=== PATIENT | female | born 1995 | race Caucasian/White ===

== ENCOUNTER 2016-08-18 22:23 | Emergency (ER) | payer OTHER ==
[~2016-08-18] VITALS: Ht 157.5 cm; Wt 54.4 kg
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
[2016-08-18] MEDS ORDERED: TETRACAINE 0.5% OPHTH SOLUTION 4ML BOTTLE. OD ONE (23:00)
[2016-08-18] MEDS ORDERED: FLUORESCEIN OPHTH TEST STRIP. OD ONE (23:00)
[2016-08-18] MEDS ORDERED: ERYT1OIN6 EACHEYE (23:29)
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
[2016-08-19 00:20] VITALS: BP 118/67
== END 2016-08-19 00:25 | disposition home or self-care (01) ==
LOC: ER 22:23
DX: S16.1XXA Strain of muscle, fascia and tendon at neck level, initial encounter (principal); S29.012A Strain of muscle and tendon of back wall of thorax, initial encounter; S05.01XA Injury of conjunctiva and corneal abrasion without foreign body, right eye, initial encounter; S09.90XA Unspecified injury of head, initial encounter; V49.88XA Car occupant (driver) (passenger) injured in other specified transport accidents, initial encounter; Y93.89 Activity, other specified; Y99.8 Other external cause status; Y92.488 Other paved roadways as the place of occurrence of the external cause
CPT/HCPCS: 70450; 72125; 72128; 81025; 84703; 99284-25

== ENCOUNTER 2017-06-23 16:06 | Emergency (ER) | payer OTHER ==
[2017-06-23 17:04] LABS: URINE HCG POC HCG NEGATIVE (Negative)
== END 2017-06-23 17:10 | disposition home or self-care (01) ==
LOC: ER 16:06
DX: M77.52 Other enthesopathy of left foot and ankle (principal)
CPT/HCPCS: 73630; 81025; 99284

== ENCOUNTER 2017-08-09 00:44 | Emergency (ER) | payer OTHER ==
[2017-08-09 01:23] LABS: URINE HCG POC HCG NEGATIVE (Negative)
[2017-08-09 01:48] LABS: ADD MAN DIFF? NO
[2017-08-09] MEDS: IV NORMAL SALINE 1000ML BAG 1,000 ML IV (01:50)
[2017-08-09] MEDS: KETOROLAC 30 MG/ML INJ. IV (01:50)
[2017-08-09] MEDS: ONDANSETRON ODT 4 MG TAB.RAPDIS. PO (01:50)
[2017-08-09 01:52] LABS: BASO % 1 % (0-3); BILIRUBIN,URINE SMALL (NEG); CLARITY,URINE CLEAR; COLOR,URINE AMBER; EOS # 0.1 x10^3/uL (0.0-0.7); EOS % 1 % (0-3); GLUCOSE,URINE NEGATIVE (NEG); HEMATOCRIT 41.4 % (36.0-47.0); HEMOGLOBIN 14.5 g/dL (12.0-15.5); LYMPH # 2.3 x10^3/uL (1.0-4.8); LYMPH % 33 % (24-48); MEAN CORPUSCULAR HEMOGLOBIN 32 pg (25-35); MEAN CORPUSCULAR HGB CONC 35 g/dL (31-37); MEAN CORPUSCULAR VOLUME 92 fL (79-100); MONO # 0.6 x10^3/uL (0.0-1.1); MONO % 8 % (0-9); NEUT # 4.1 x10^3uL (1.8-7.7); NEUT % 58 % (31-73); NITRITE,URINE NEGATIVE (NEG); PH,URINE 5.5; PLATELET COUNT 265 x10^3/uL (140-400); PROTEIN,URINE NEGATIVE (NEG-TRACE); RED BLOOD COUNT 4.51 x10^6/uL (3.50-5.40); RED CELL DISTRIBUTION WIDTH 12.2 % (11.5-14.5); WHITE BLOOD COUNT 7.2 x10^3/uL (4.0-11.0)
[2017-08-09 01:57] LABS: BACTERIA,URINE 0 /HPF (0-FEW); RBC,URINE 0 /HPF (0-2); SQUAMOUS EPITHELIAL CELL,UR FEW /LPF
[2017-08-09] MEDS ORDERED: CONTRAST GIVEN MC (02:00)
[2017-08-09 02:02] LABS: ANION GAP 8 (6-14); BLOOD UREA NITROGEN 20 mg/dL (7-20); BUN/CREATININE RATIO 20 (6-20); CALCIUM 9.6 mg/dL (8.5-10.1); CARBON DIOXIDE 27 mmol/L (21-32); CHLORIDE 104 mmol/L (98-107); GFR 68.1; GLUCOSE 92 mg/dL (70-99); POTASSIUM 3.2 mmol/L (3.5-5.1); SODIUM 139 mmol/L (136-145)
[2017-08-09 02:08] LABS: ALBUMIN 4.2 g/dL (3.4-5.0); ALBUMIN/GLOBULIN RATIO 1.2 (1.0-1.7); ALK PHOS 79 U/L (46-116); ALT (SGPT) 18 U/L (14-59); AST (SGOT) 12 U/L (15-37); LIPASE 157 U/L (73-393); TOTAL BILIRUBIN 0.8 mg/dL (0.2-1.0); TOTAL PROTEIN 7.7 g/dL (6.4-8.2)
[2017-08-09] MEDS: IOHEXOL 300 MG/ML 100ML VIAL. IV (02:15)
== END 2017-08-09 04:24 | disposition home or self-care (01) ==
LOC: ER 00:44
DX: R10.9 Unspecified abdominal pain (principal); E03.9 Hypothyroidism, unspecified
CPT/HCPCS: 36415; 74177; 80053; 81001; 81025; 83690; 85025; 87491; 87591; 96361; 96374; 99285-25; J1885; J7030; Q0162; Q9967

== ENCOUNTER 2018-01-14 19:23 | Emergency (ER) | payer OTHER ==
[~2018-01-14] VITALS: Ht 157.5 cm; Wt 54.4 kg
[~2018-01-14 19:23] MED LIST: ERYT1OIN6 EACHEYE; METH4TAB2 PO; NAPR-514 PO
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
--- NOTE | 2018-01-14 21:04 | RAD ---
3 view left knee 01/14/2018 Clinical indication: Left knee pain after wearing high heels. COMPARISON: None. FINDINGS: No acute fracture or traumatic malalignment. Joint spaces maintained. No significant knee joint effusion. Normal bony alignment. IMPRESSION: No acute osseous abnormality. Electronically signed by: Darrian Blank MD (01/14/2018 9:01 PM) [facility]
[2018-01-14 21:17] VITALS: BP 152/69
[2018-01-14] MEDS ORDERED: CEPH500T PO (21:31)
== END 2018-01-14 21:46 | disposition home or self-care (01) ==
LOC: ER 19:23
DX: L03.116 Cellulitis of left lower limb (principal); E03.9 Hypothyroidism, unspecified; Z88.1 Allergy status to other antibiotic agents; Z98.890 Other specified postprocedural states
CPT/HCPCS: 73562; 99284

== ENCOUNTER 2021-02-12 21:17 | Emergency (ER) | payer OTHER ==
[~2021-02-12] VITALS: Ht 157.5 cm; Wt 68.1 kg
[~2021-02-12 21:17] MED LIST changes: +CEPH500T PO; +ERYT1OIN3 EACHEYE; -ERYT1OIN6 EACHEYE
[2021-02-12 23:39] VITALS: BP 142/85
[2021-02-13] MEDS ORDERED: CYCL10TA19 PO
--- NOTE | 2021-02-13 00:01 | PHYS DOC ---
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 Patient denies numbness or tingling or trauma. Patient states she has taken 1000 mg of ibuprofen, rubbed icy hot on this area has taken a warm bath and shower trying to stretch this out and none of those have helped. (KELL HIGHTOWER APRN) Review of Systems: Review of Systems: Constitutional: Denies fever or chills. [] Eyes: Denies change in visual acuity. [] HENT: Denies nasal congestion or sore throat. [] Respiratory: Denies cough or shortness of breath. [] Cardiovascular: Denies chest pain or edema. [] GI: Denies abdominal pain, nausea, vomiting, bloody stools or diarrhea. [] : Denies dysuria. [] Musculoskeletal: Right-sided neck pain Integument: Denies rash. [] Neurologic: Denies headache, focal weakness or sensory changes. [] Endocrine: Denies polyuria or polydipsia. [] Lymphatic: Denies swollen glands. [] Psychiatric: Denies depression or anxiety. [] (KELL HIGHTOWER APRN) Heart Score: C/O Chest Pain: N/A Risk Factors: Risk Factors: DM, Current or recent (<one month) smoker, HTN, HLP, family history of CAD, obesity. Risk Scores: Score 0 - 3: 2.5% MACE over next 6 weeks - Discharge Home Score 4 - 6: 20.3% MACE over next 6 weeks - Admit for Clinical Observation Score 7 - 10: 72.7% MACE over next 6 weeks - Early Invasive Strategies (KELL HIGHTOWER APRN) Allergies: Allergies: Allergies Coded Allergies Type Severity Reaction Last Updated Verified ciprofloxacin Allergy Severe rash 01/14/18 Yes (KELL HIGHTOWER APRN) Physical Exam: PE: Constitutional: Well developed, well nourished, no acute distress, non-toxic appearance. [] HENT: Normocephalic, atraumatic, bilateral external ears normal, oropharynx moist, no oral exudates, nose normal. [] Eyes: PERRLA, EOMI, conjunctiva normal, no discharge. [] Neck: Range of motion is limited due to pain on the right-hand side, patient has tenderness on the right trapezius muscle, full range of motion of right arm neurovascular intact in the right arm radial pulses 2+ Cardiovascular:Heart rate regular rhythm, no murmur [] Lungs & Thorax: Bilateral breath sounds clear to auscultation [] Abdomen: Bowel sounds normal, soft, no tenderness, no masses, no pulsatile masses. [] Skin: Warm, dry, no erythema, no rash. [] Back: No tenderness, no CVA tenderness. [] Extremities: No tenderness, no cyanosis, no clubbing, ROM intact, no edema. [] Neurologic: Alert and oriented X 3, normal motor function, normal sensory function, no focal deficits noted. [] Psychologic: Affect normal, judgement normal, mood normal. [] (KELL HIGHTOWER APRN) EKG: EKG: [] (KELL HIGHTOWER APRN) Radiology/Procedures: Radiology/Procedures: [] (KELL HIGHTOWER APRN) Course & Med Decision Making: Course & Med Decision Making Pertinent Labs and Imaging studies reviewed. (See chart for details) Due to the lack of trauma, and no known injury per patient report, will send patient home with Flexeril and to take [id number] nonsteroidal anti- inflammatories. Continue with Biofreeze and warm packs or ice packs as needed for pain follow-up with your primary care physician next week if pain continue. Return to the emergency department if you develop inability to move right arm, neck pain becomes worse, you have vision issues or have any other concerns (KELL HIGHTOWER APRN) Dragon Disclaimer: Dragon Disclaimer: This electronic medical record was generated, in whole or in part, using a voice recognition dictation system. (KELL HIGHTOWER APRN) Departure Departure Impression: Primary Impression: Torticollis, acute Disposition: HOME / SELF CARE / HOMELESS Condition: STABLE Referrals: IGNACIO CARDENAS MD (PCP) Patient Instructions: Torticollis, Acute Additional Instructions: Take Flexeril 1 tablet every 8 hours as needed for muscle spasms, due to sedating property please do not drive or operate heavy machinery of taking this Take [id number] ibuprofen as labeled directed for pain Ice packs 20 minutes on 3-4 times daily to help with pain and swelling Biofreeze [id number] as labeled directed Follow-up with your primary care physician next week if pain does not improve Return to the emergency department if your right arm becomes numb or you have decreased sensation in your arm, you have increasing neck pain this not relieved by the above measures, you have right-sided facial pain or headache, any other concerns Scripts Cyclobenzaprine Hcl (CYCLOBENZAPRINE HCL) 10 Mg Tablet 10 MG PO PRN Q8HRS PRN for MUSCLE SPASTICITY, #20 TAB Prov: KELL HIGHTOWER APRN 02/13/21 Attending Signature Attending Signature I have reviewed the PA/HYDRO PNEUMATIC TESTER's note and plan of care. I was available for consultation as needed during the patient's visit in the emergency department. I agree with the clinical impression, plan, and disposition. (LISSETH OLIVAS DO) KELL HIGHTOWER APRN Feb 13, 2021 00:00 LISSETH OLIVAS DO Feb 13, 2021 01:50
== END 2021-02-13 00:17 | disposition home or self-care (01) ==
LOC: ER 21:17
DX: M43.6 Torticollis (principal); E03.9 Hypothyroidism, unspecified; Z88.1 Allergy status to other antibiotic agents
CPT/HCPCS: 99283